=== PATIENT | female | born 1960 | race Asian ===

== ENCOUNTER 2019-09-07 10:34 | Outpatient (CLI) | payer OTHER | END 2019-09-07 22:07 | disposition home or self-care (01) | LOC: RAD 10:34 | DX: M46.1 Sacroiliitis, not elsewhere classified (principal) ==

== ENCOUNTER 2019-11-03 08:16 | Day surgery (SDC) | payer OTHER ==
[~2019-11-03] VITALS: Ht 172.7 cm; Wt 147.0 kg
== END 2019-11-03 10:29 | disposition home or self-care (01) ==
LOC: OR 08:16
PROC: 3E0U33Z Introduction of Anti-inflammatory into Joints, Percutaneous Approach (ICD-10-PCS; principal; 2019-11-03)
PROC: 3E0U3BZ Introduction of Anesthetic Agent into Joints, Percutaneous Approach (ICD-10-PCS; 2019-11-03)
DX: M53.3 Sacrococcygeal disorders, not elsewhere classified (principal); M46.1 Sacroiliitis, not elsewhere classified
CPT/HCPCS: J1020; J3490